=== PATIENT | female | born 1975 | race Caucasian/White ===

== ENCOUNTER → 2017-03-16 | Outpatient (CLI) | payer BC ==
--- NOTE | 2017-03-16 20:48 | XR ---
EXAMINATION TYPE: XR chest 2V DATE OF EXAM: 03/16/2017 COMPARISON: NONE HISTORY: Chest pressure and cough TECHNIQUE: Frontal and lateral views of the chest are obtained. FINDINGS: Heart and mediastinum are normal. Lungs are clear. Diaphragm is normal. There are no hilar masses. Bony thorax is intact. There are breast implants. IMPRESSION: No cardiopulmonary disease.
== END | disposition home or self-care (01) ==
LOC: RADXRMAIN 17:00
PROVIDERS: ATTEND Family Medicine
DX: J42 Unspecified chronic bronchitis (principal)
CPT/HCPCS: 71020

== ENCOUNTER → 2019-02-05 | Outpatient (CLI) | payer BC ==
--- NOTE | 2019-02-05 12:16 | US ---
EXAMINATION TYPE: US st tissue head/neck DATE OF EXAM: 02/05/2019 COMPARISON: NONE CLINICAL HISTORY: 43-year-old female R59.0 localized enlarged lymph nodes. Palpable lump behind left ear. TECHNIQUE: Targeted sonographic examination in the left postauricular region at the palpable site. FINDINGS: Custom Frame Assembler notes: Echogenic nodule at area of palpable lump = 1.5.x 1.0 x 1.1 cm, with internal bloo d flow, suggestive of a lymph node. This abuts the parotid gland which is located just anterior. IMPRESSION: Nonspecific 1.5 cm echogenic nodule along the posterior margin of the parotid gland at the site of pa lpable abnormality in the left postauricular region. The appearance is somewhat atypical for a lymph node. Clinical follow-up is recommended. If there are suspicious clinical features or enlargement is noted, contrast-enhanced CT of the neck can be performed after placement of a palpable marker. Otherw ise, consider 2-3 month follow-up ultrasound to reassess.
== END | disposition home or self-care (01) ==
LOC: RADUSWWP 10:40
PROVIDERS: ATTEND Family Medicine
DX: K11.8 Other diseases of salivary glands (principal)
CPT/HCPCS: 76536

== ENCOUNTER → 2019-03-29 | Outpatient (CLI) | payer BC ==
--- NOTE | 2019-04-02 14:39 | MM ---
Reason for exam: screening (asymptomatic). Last mammogram was performed 1 year and 1 month ago. History: Patient history of other cancer and is nulliparous. Retro-pectoral saline implants in both breasts, 2005. Taking hormonal contraceptives for 30 years beginning at age 13. Physical Findings: A clinical breast exam by your physician is recommended on an annual basis and results should be correlated with mammographic findings. MG Screening Mammo Implant/CAD Bilateral CC, MLO, and ID view(s) were taken. Prior study comparison: March 01, 2018, mammogram. February 11, 2017, mammogram. The breast tissue is heterogeneously dense. This may lower the sensitivity of mammography. No significant changes when compared with prior studies. ASSESSMENT: Benign, BI-RAD 2 RECOMMENDATION: Routine screening mammogram of both breasts in 1 year.
== END | disposition home or self-care (01) ==
LOC: RADMAMWWP 07:08
PROVIDERS: ATTEND Family Medicine
DX: Z12.31 Encounter for screening mammogram for malignant neoplasm of breast (principal)
CPT/HCPCS: 77067

== ENCOUNTER → 2019-05-29 | Outpatient (CLI) | payer BC ==
--- NOTE | 2019-05-29 08:16 | US ---
EXAMINATION TYPE: US thyroid soft tissue head/neck DATE OF EXAM: 05/29/2019 COMPARISON: US 02/05/2019. CLINICAL HISTORY: E04.1 nodule; compare to prior US the inferior left temporal mandibular palpable th at is smaller in size No discreet nodule is seen after multiple views at area of concern and as compare to right upper neck . IMPRESSION: Area of concern prior visualize hyperechoic nodule is not clearly seen on images saved today. Correla te clinically.
== END | disposition home or self-care (01) ==
LOC: RADUSWWP 06:44
PROVIDERS: ATTEND Otolaryngology
DX: R22.1 Localized swelling, mass and lump, neck (principal)
CPT/HCPCS: 76536

== ENCOUNTER → 2019-06-28 | Outpatient (CLI) | payer BC | END | disposition home or self-care (01) | LOC: LABWHC1 08:40 | PROVIDERS: ATTEND Otolaryngology | DX: K11.1 Hypertrophy of salivary gland (principal); K11.7 Disturbances of salivary secretion | CPT/HCPCS: 36415; 86235 ==

== ENCOUNTER → 2019-09-14 | Outpatient (CLI) | payer BC ==
--- NOTE | 2019-09-14 08:24 | US ---
EXAMINATION TYPE: US thyroid st tissue head/neck DATE OF EXAM: 09/14/2019 COMPARISON: CLINICAL HISTORY: K11.1 LT PAROTID MASS. Patient states having a palpable inferior to left ear. Alysha ent states it fluctuates in size. Patient has had previous ultrasounds. TECHNIQUES is FINDINGS: Grayscale and color ultrasound imaging was performed in the area of concern i nferior to the left ear. Area of concern scanned. No prominent masses or lesions visualized. No flu id seen. Contralateral images taken. Left parotid gland does appear larger in size compared to righ t gland. IMPRESSION: Slightly asymmetric size of the left parotid gland in comparison to the right. Consider sialoadenitis. No focal masses seen.
== END | disposition home or self-care (01) ==
LOC: RADUSWWP 07:01
PROVIDERS: ATTEND Otolaryngology
DX: K11.1 Hypertrophy of salivary gland (principal)
CPT/HCPCS: 76536

== ENCOUNTER → 2020-07-16 | Outpatient (CLI) | payer BC ==
--- NOTE | 2020-07-17 08:31 | MM ---
Reason for exam: screening (asymptomatic). Last mammogram was performed 1 year and 4 months ago. History: Patient history of other cancer and is nulliparous. Retro-pectoral saline implants in both breasts, 2005. Taking hormonal contraceptives for 30 years beginning at age 13. Physical Findings: A clinical breast exam by your physician is recommended on an annual basis and results should be correlated with mammographic findings. MG Screening Mammo Implant/CAD Bilateral CC, MLO, and ID view(s) were taken. Prior study comparison: March 29, 2019, bilateral MG screening mammo implant/CAD. March 01, 2018, mammogram. The breast tissue is extremely dense which could obscure a lesion on mammography. Bilateral subpectoral implants redmonstrated. ASSESSMENT: Benign, BI-RAD 2 RECOMMENDATION: Routine screening mammogram of both breasts in 1 year. some consider annual ultrasound surveillance for extremely dense fibroglandular tissue.
== END | disposition home or self-care (01) ==
LOC: RADMAMWWP 07:03
PROVIDERS: ATTEND Obstetrics & Gynecology
DX: Z12.31 Encounter for screening mammogram for malignant neoplasm of breast (principal)
CPT/HCPCS: 77067

== ENCOUNTER → 2021-09-01 | Outpatient (CLI) | payer BC ==
--- NOTE | 2021-09-01 12:49 | MM ---
Reason for exam: screening (asymptomatic). Last mammogram was performed 1 year and 2 months ago. History: Patient history of other cancer and is nulliparous. Retro-pectoral saline implants in both breasts, 2005. Taking hormonal contraceptives for 30 years beginning at age 13. Physical Findings: A clinical breast exam by your physician is recommended on an annual basis and results should be correlated with mammographic findings. MG Screening Mammo Implant/CAD Bilateral CC and MLO view(s) were taken. Prior study comparison: July 16, 2020, bilateral MG screening mammo implant/CAD. March 29, 2019, bilateral MG screening mammo implant/CAD. The breast tissue is extremely dense which could obscure a lesion on mammography. Stable bilateral implants. No significant changes when compared with prior studies. ASSESSMENT: Benign, BI-RAD 2 RECOMMENDATION: Routine screening mammogram of both breasts in 1 year.
== END | disposition home or self-care (01) ==
LOC: RADMAMWWP 06:58
PROVIDERS: ATTEND Obstetrics & Gynecology
DX: Z12.31 Encounter for screening mammogram for malignant neoplasm of breast (principal)
CPT/HCPCS: 77067

== ENCOUNTER → 2021-12-02 | Outpatient (CLI) | payer BC ==
--- NOTE | 2021-12-02 17:34 | US ---
EXAMINATION TYPE: US liver DATE OF EXAM: 12/02/2021 COMPARISON: NONE CLINICAL HISTORY: R94.5 ABNORMAL RESULTS OF LIVER FUNCTION STUDIES. elevated lft's, no symptoms EXAM MEASUREMENTS: Liver Length: 13.7 cm Gallbladder Wall: 0.2 cm CBD: 0.5 cm Right Kidney: 10.4 x 4.2 x 4.3 cm Pancreas: wnl Liver: wnl Gallbladder: fold seen, wnl Evidence for sonographic Tyler's sign: no CBD: wnl Right Kidney: wnl IMPRESSION: 1. Normal right upper quadrant abdomen ultrasound
== END | disposition home or self-care (01) ==
LOC: RADUSWWP 07:01
PROVIDERS: ATTEND Family Medicine
DX: R94.5 Abnormal results of liver function studies (principal)
CPT/HCPCS: 76705

== ENCOUNTER → 2022-01-19 | Outpatient (CLI) | payer BC | LOC: CPPFTMAIN 07:42 | PROVIDERS: ATTEND Family Medicine | DX: R06.09 Other forms of dyspnea (principal) | CPT/HCPCS: 94060; 94726; 94729 ==

== ENCOUNTER → 2022-03-15 | Outpatient (CLI) | payer BC ==
[2022-03-15 20:11] LABS: Total Protein,CSF 53 mg/dL (12-60)
[2022-03-15 22:04] LABS: Appearance,CSF Clear; CSF Tube Number 4; CSF Tube Volume 4; Nucleated Cells, CSF 0 u/L (0-5); Red Blood Cell,CSF 0 u/L (0-10)
== END | disposition home or self-care (01) ==
LOC: LABWHC1 07:41
PROVIDERS: ATTEND Nurse Practitioner Family
DX: G35 Multiple sclerosis (principal)
CPT/HCPCS: 36415; 82040; 82042; 82784; 83873; 83916; 84157; 87801; 89050

== ENCOUNTER → 2022-07-08 | Outpatient (CLI) | payer BC ==
--- NOTE | 2022-07-08 17:25 | P.SLEEP ---
History of Present Illness DATE: 07/08/2022 CONSULTATION/NEW PATIENT EVALUATION HISTORY OF PRESENT ILLNESS/SLEEP-WAKE EVALUATION: 46 year old lady had been evaluated in the sleep center for difficulties to initiate sleep and multiple awakenings from sleep and feeling extremely tired during the day. SLEEP SCHEDULE: Usually sleep schedule on weekdays from 10 PM to 3 AM, during days off from 10 PM to 6 AM. FALLING ASLEEP: Patient has significant difficulties with the falling asleep. She usually goes to bed around 8 when showed he feels tiredness and sleepiness, but falling asleep only around 10. She is using Lunesta before going to bed. DURING SLEEP: No clear history of snoring, but patient has multiple awakenings from sleep and 2 episodes of nocturia at night. No history of hypnogogical hallucinations, sleep paralysis, or cataplexy. DURING THE DAY/WAKE STATE: In the morning patient wake up tired, way back to sleep, has problems with memory, concentration, irritability, depression and anxiety. [place] sleepiness scale is 6. Usually patient doesn't take any naps. She drinks to coffee in the morning. PAST MEDICAL HISTORY: Chronic fatigue syndrome, migraine, Covid 19, post Covid19 hyperreflexia. PAST SURGICAL HISTORY: Tonsillectomy, breast augementation. MEDICATIONS: Lunesta, gabapentin, control pills, Zomig. SOCIAL HISTORY: Negative for smoking, alcohol consumption occasional. FAMILY HISTORY: Rheumatoid arthritis, snoring. REVIEW OF SYSTEMS: Difficulties to initiate sleep, multiple awakenings from sleep, significant tiredness during the day. No fevers. No double vision. No recent chest pain. No shortness of breath. No abdominal pain. No bleeding episodes. No blood in urine. No seizure episodes. PHYSICAL EXAMINATION: GENERAL: A pleasant patient without any distress. VITAL SIGNS: BP 133/82 , HR 60 , RR 14 , weight 130.8 pounds, height 5 foot 3- 3/4 inches, body mass index 22.5 . HEENT: PERRLA, EOMI. Evaluation of oropharynx showed tongue protrudes midline, low position of soft palate Mallampati 23, slight overbite. NECK: Supple. No JVD. Thyroid is not palpable. 12 inches in circumference. LUNGS: Clear to percussion and to auscultation. Good air exchange. No wheezing or rhonchi. HEART: S1, S2 regular. No murmurs, gallops or rubs. ABDOMEN: Soft and nontender. Bowel sounds are present. No organomegaly appreciated. EXTREMITIES: No clubbing or cyanosis. SERVICE SUPPORT REPRESENTATIVE: Awake, alert, and oriented x3. Cranial nerves 2 to 7 intact. There is no fasciculation or atrophy noted. No focal deficits observed. ASSESSMENT: 1. Psychophysiological insomnia in severe range for 20 years. 2. Multiple awakenings from sleep, overbite, rule out obstructive sleep apnea and periodic limb movements. 3 history of chronic fatigue syndrome for many years. 4. History of Raynaud syndrome. 5 status post Covid 19. 6. History of post Covid hyperreflexia. 7. Migraines. 8. Status post breast augmentation. 9. Status post tonsillectomy. PLAN: 1. Polysomnography for evaluation of patient's breathing during sleep and also to check for possible periodic limb movements. Significant insomnia is contraindication for home sleep apnea test. 2. I discussed with patient psychological techniques for treatment of insomnia including stimulus control, paradoxical intention, warry time, no watching clock 3. Preferable position during sleep on the side. 4. No driving if patient feels any sleepiness. Patient is aware of civil and criminal liability for unsafe driving. 5. Sleep hygiene with regular sleep time for at least 7.5-8 hours. 6. Following plan after reading sleep study. Thank you very much for referring this patient for consultation. Sincerely, Tate Roque MD, PhD, FAASM. Diplomat of [place] [employer], Sleep Medicine Board by [place] [employer] [place] [employer] [facility] Note - Sleep Note Sleep Note: Temperature: Pulse Rate: Respiratory Rate: Blood Pressure: SpO2: Height: Weight: BMI: Neck Circumference:
== END ==
LOC: SLEEP 14:21
PROVIDERS: ATTEND Internal Medicine
DX: F51.04 Psychophysiologic insomnia (principal); F32.A Depression, unspecified; F41.9 Anxiety disorder, unspecified; M26.29 Other anomalies of dental arch relationship; I73.00 Raynaud's syndrome without gangrene; Z86.16 Personal history of COVID-19; G43.909 Migraine, unspecified, not intractable, without status migrainosus; Z90.89 Acquired absence of other organs; R53.82 Chronic fatigue, unspecified
CPT/HCPCS: 99211

== ENCOUNTER → 2022-09-07 | Outpatient (CLI) | payer BC ==
--- NOTE | 2022-09-08 08:24 | MM ---
Reason for Exam: Screening (asymptomatic). Last screening mammogram was performed 12 month(s) ago. Patient History: Menarche at age 11. Patient has no children. Other cancer. Currently using Hormonal Contraceptives, beginning at age 13 for 30 years. 12/18/2021, Bilateral Implants. 2004, Bilateral Implants. Risk Values: Leda 5 year model risk: 1.0%. NCI Lifetime model risk: 11.6%. Prior Study Comparison: 03/29/2019 Bilateral Screening Mammogram, [facility]. 07/16/2020 Bilateral Screening Mammogram, [facility]. 09/01/2021 Bilateral Screening Mammogram, [facility]. Tissue Density: The breast tissue is extremely dense which could obscure a lesion on mammography. Findings: Analyzed By CAD. There is no suspicious group of microcalcifications or new suspicious mass in either breast. Bilateral implants are intact. Overall Assessment: Negative, BI-RAD 1 Management: Screening Mammogram of both breasts in 1 year. A clinical breast exam by your physician is recommended on an annual basis and results should be correlated with mammographic findings. Electronically signed and approved by: Johnathon Zhu M.D. Radiologis
== END | disposition home or self-care (01) ==
LOC: RADMAMWWP 07:02
PROVIDERS: ATTEND Obstetrics & Gynecology
DX: Z12.31 Encounter for screening mammogram for malignant neoplasm of breast (principal); Z98.82 Breast implant status
CPT/HCPCS: 77067

== ENCOUNTER 2022-11-01 07:04 | Day surgery (SDC) | payer BC ==
[~2022-11-01 07:04] MED LIST: ACETAMINOPHEN TAB 500 MG TAB PO PRN; HEPARIN SODIUM,PORCINE/PF 5,000 UNIT/0.5 ML SYRINGE SQ PRN
[2022-11-01] MEDS ORDERED: HYDROmorphone 0.5 MG/0.5 ML SYRINGE IVP PRN (07:15)
[2022-11-01] MEDS ORDERED: ONDANSETRON 4 MG/2 ML VIAL IVP ONE (07:15)
[2022-11-01] MEDS ORDERED: LACTATED RINGERS 1,000 ML IV SCH (07:15)
[2022-11-01] MEDS ORDERED: DEXAMETHASONE SOD PHOSPHATE 4 MG/ML 1 ML VIAL IV ONE (07:15)
[2022-11-01] MEDS ORDERED: LIDOCAINE 1% (10MG/ML) FOR IV START INTRADERMA PRN (07:15)
[2022-11-01 07:42] VITALS: RESP 16
[2022-11-01] MEDS ORDERED: SCOPOLAMINE 1 MG/72 HR PATCH TRANSDERM ONE (07:50)
[2022-11-01] MEDS ORDERED: MIDAZOLAM 2 MG/2 ML VIAL ONE (08:13)
[2022-11-01] MEDS ORDERED: fentaNYL (PF) 50 MCG/ML 2 ML AMP ONE (08:13)
[2022-11-01] MEDS ORDERED: PROPOFOL 10 MG/ML 20 ML VIAL IV ONE (08:13)
[2022-11-01] MEDS ORDERED: LIDOCAINE 2% INJ 20 MG/ML (2 ML VIAL) ONE (08:13)
[2022-11-01] MEDS ORDERED: SODIUM CHLORIDE 0.9% 50 ML with ceFAZolin 2,000 MG IV ONE ×2 (08:17)
[2022-11-01] MEDS ORDERED: BUPIVACAINE (PF) 0.25% 30 ML VIAL SQ ONE ×2 (08:39)
[2022-11-01] MEDS ORDERED: HYDROmorphone 1 MG/ML 1 ML SYRINGE IVP PRN (09:09)
[2022-11-01] MEDS ORDERED: NALOXONE 0.4 MG/ML 1 ML VIAL IV PRN (09:09)
[2022-11-01] MEDS ORDERED: HYDROcodone/APAP 5-325MG 1 EACH TAB PO PRN ×2 (09:09)
--- NOTE | 2022-11-01 09:10 | P.OP ---
Date of Procedure: 11/01/22 Procedure(s) Performed: PREOPERATIVE DIAGNOSIS: Myositis, muscle weakness POSTOPERATIVE DIAGNOSIS: Same PROCEDURE: Left quadriceps muscle biopsy SURGEON: Shirley EBL: Herminio Barnett ANESTHESIA: Gen. COMPLICATIONS: None OPERATIVE PROCEDURE: Patient place in the operative table in supine position. The patient was placed under general anesthesia. Left thigh was prepped and draped sterilely. A longitudinal incision was made overlying the mid aspect of the left thigh. The saphenous tissues were divided using electrocautery. The fascia was then divided as well. A 3 x 1 cm piece of muscle was removed. This was cut into 3 portions and sent to the [facility] as per their instructions. The fascia was reapproximated using a running 3-0 Vicryl stitch. Subcutaneous tissues closed using 3-0 Vicryl sutures. Skin closed using a 4-0 Monocryl sutures. Skin glue was applied. DISPOSITION: Stable to recovery room
[2022-11-01 09:17] VITALS: TEMP 98.1
[2022-11-01 10:44] VITALS: BP 109/70; PULSE 63
== END 2022-11-01 10:30 | disposition home or self-care (01) ==
LOC: OR 07:04
PROVIDERS: ATTEND Surgery
DX: M62.81 Muscle weakness (generalized) (principal); M60.9 Myositis, unspecified; G43.909 Migraine, unspecified, not intractable, without status migrainosus; R53.82 Chronic fatigue, unspecified; G47.00 Insomnia, unspecified; F42.9 Obsessive-compulsive disorder, unspecified; K21.9 Gastro-esophageal reflux disease without esophagitis; I73.00 Raynaud's syndrome without gangrene; Z91.040 Latex allergy status; Z79.899 Other long term (current) drug therapy
CPT/HCPCS: 20205; 81025; 87635; J2250; J1100; J2405; J0690; J3010; J2704; J2001

== ENCOUNTER → 2023-07-15 | Outpatient (CLI) | payer BC ==
--- NOTE | 2023-07-15 15:52 | XR ---
EXAMINATION TYPE: XR wrist complete RT DATE OF EXAM: 07/15/2023 CLINICAL HISTORY: pain TECHNIQUE: Frontal, lateral and oblique images of the right wrist are obtained. COMPARISON: None. FINDINGS: There is no acute fracture/dislocation evident. The joint spaces appear within normal limits. The o verlying soft tissue appears unremarkable. IMPRESSION: There is no acute fracture or dislocation seen. ICD 10 NO FRACTURE, INITIAL EVALUATION
--- NOTE | 2023-07-15 15:53 | XR ---
EXAMINATION TYPE: XR hand complete RT DATE OF EXAM: 07/15/2023 CLINICAL HISTORY: pain TECHNIQUE: Frontal, lateral and oblique images of the right wrist are obtained. COMPARISON: None. FINDINGS: There is no acute fracture/dislocation evident. The joint spaces appear within normal limits. The o verlying soft tissue appears unremarkable. IMPRESSION: There is no acute fracture or dislocation seen. ICD 10 NO FRACTURE, INITIAL EVALUATION
== END | disposition home or self-care (01) ==
LOC: RADXRMAIN 15:25
PROVIDERS: ATTEND Family Medicine
DX: M25.431 Effusion, right wrist (principal); M79.641 Pain in right hand

== ENCOUNTER → 2023-10-20 | Outpatient (CLI) | payer BC ==
--- NOTE | 2023-10-22 17:02 | MM ---
Reason for Exam: Screening (asymptomatic). Last mammogram was performed 1 year(s) and 2 month(s) ago. Patient History: Menarche at age 11. Patient has no children. Other cancer. Currently using Hormonal Contraceptives, beginning at age 13 for 30 years. 12/18/2021, Bilateral Implants. 2004, Bilateral Implants. Risk Values: Elda 5 year model risk: 1.1%. NCI Lifetime model risk: 11.3%. Prior Study Comparison: 07/16/2020 Bilateral Screening Mammogram, [facility]. 09/01/2021 Bilateral Screening Mammogram, [facility]. 09/07/2022 Bilateral MG screening mammo implant/CAD, [facility]. Tissue Density: The breast tissue is heterogeneously dense. This may lower the sensitivity of mammography. Findings: Analyzed By CAD. The pattern is symmetrical and stable. No significant interval changes. Bilateral breast prostheses are present. No suspicious groups of microcalcifications, spiculated or lobular masses, architectural distortion or other secondary signs of malignancy are mammographically apparent. Overall Assessment: Benign, BI-RAD 2 Management: Screening Mammogram of both breasts in 1 year. A negative mammogram report should not preclude additional follow up of suspicious palpable abnormalities. Patient should continue monthly self breast exam. A clinical breast exam by your physician is recommended on an annual basis and results should be correlated with mammographic findings. Electronically signed and approved by: Mathew Crocker D.O. Radiologis
== END | disposition home or self-care (01) ==
LOC: RADMAMWWP 14:26
PROVIDERS: ATTEND Obstetrics & Gynecology
DX: Z12.31 Encounter for screening mammogram for malignant neoplasm of breast (principal); Z98.82 Breast implant status
CPT/HCPCS: 77067

== ENCOUNTER → 2024-10-23 | Outpatient (CLI) | payer BC ==
--- NOTE | 2024-10-23 08:42 | MM ---
Reason for Exam: Hx of breast augmentation, asymptomatic. Last screening mammogram was performed 12 month(s) ago. Patient History: Menarche at age 11. Patient has no children. Perimenopausal. Other cancer. Currently using Hormonal Contraceptives, beginning at age 13 for 30 years. 12/18/2021, Bilateral Implants. 2004, Bilateral Implants. Risk Values: Elda 5 year model risk: 1.1%. NCI Lifetime model risk: 11.1%. Prior Study Comparison: 09/01/2021 Bilateral Screening Mammogram, [facility]. 09/07/2022 Bilateral MG screening mammo implant/CAD, [facility]. 10/20/2023 Bilateral MG screening mammo implant/CAD, [facility]. Tissue Density: The breasts are extremely dense, which lowers the sensitivity of mammography. Findings: Analyzed By CAD. Bilateral subpectoral breast implants are redemonstrated. There is no suspicious new group of microcalcifications or new suspicious mass in either breast. Overall Assessment: Benign, BI-RAD 2 Management: Screening Mammogram of both breasts in 1 year. Some advice ultrasound surveillance in patient's with background extremely dense tissue. Patient should continue monthly self-breast exams. A clinical breast exam by your physician is recommended on an annual basis. This exam should not preclude additional follow-up of suspicious palpable abnormalities. Note on Elda scores and lifetime risk: 1. A Elda score greater than 3% is considered moderate risk. If this is the case, consider specialist referral to assess eligibility for a risk reducing agent. 2. If overall lifetime risk for the development of breast cancer is 20% or higher, the patient may qualify for future screening with alternating mammogram and breast MRI. [facility], , 10/23/2024 8:38 AM. Electronically signed and approved by: Bairon Alvarado M.D.
== END | disposition home or self-care (01) ==
LOC: RADMAMWWP 07:22
PROVIDERS: ATTEND Obstetrics & Gynecology
DX: Z12.31 Encounter for screening mammogram for malignant neoplasm of breast (principal); Z98.82 Breast implant status; R92.343 Mammographic extreme density, bilateral breasts
CPT/HCPCS: 77067